=== PATIENT | male | born 1955 | race Hispanic/Latino ===

== ENCOUNTER 2018-07-27 10:57 | Outpatient (CLI) | payer MEDICARE, MEDICAID ==
--- NOTE | 2018-07-28 10:31 | RAD ---
MODIFIED BARIUM SWALLOW WITH SPEECH THERAPIST: HISTORY: Oropharyngeal dysphagia and feeding difficulties. FINDINGS/IMPRESSION: A modified barium swallow is performed by the speech therapist. No aspiration or penetration is seen during the examination. Please see dedicated speech therapy report for specific findings and recomm endations. POS: [facility]
== END 2018-07-27 10:58 | disposition home or self-care (01) ==
PROVIDERS: ATTEND Family Medicine
DX: R13.12 Dysphagia, oropharyngeal phase (principal); R63.3 Feeding difficulties
CPT/HCPCS: 74230; G8996-GN-CK; G8997-GN-CK; G8998-GN-CK